=== PATIENT | female | born 1960 | race Hispanic/Latino ===

== ENCOUNTER → 2019-12-26 | Outpatient (CLI) | payer BC | END | disposition home or self-care (01) | LOC: RAH 15:30 | PROVIDERS: ATTEND Obstetrics & Gynecology | DX: Z12.31 Encounter for screening mammogram for malignant neoplasm of breast (principal) | CPT/HCPCS: 77067 ==

== ENCOUNTER → 2020-09-17 | Outpatient (CLI) | payer BC | END | disposition home or self-care (01) | LOC: RAH 12:54 | PROVIDERS: ATTEND Family Medicine Sports Medicine | DX: M25.462 Effusion, left knee (principal); M23.92 Unspecified internal derangement of left knee | CPT/HCPCS: 73721 ==

== ENCOUNTER → 2024-04-29 | Outpatient (CLI) | payer BC | END | disposition home or self-care (01) | LOC: RAH 12:30 | PROVIDERS: ATTEND Obstetrics & Gynecology | DX: Z12.31 Encounter for screening mammogram for malignant neoplasm of breast (principal); R92.30 Dense breasts, unspecified | CPT/HCPCS: 77067 ==

== ENCOUNTER → 2025-05-29 | Outpatient (CLI) | payer BC | END | disposition home or self-care (01) | LOC: RAH 13:39 | DX: Z12.31 Encounter for screening mammogram for malignant neoplasm of breast (principal) | CPT/HCPCS: 77067 ==